=== PATIENT | female | born 1970 | race Caucasian/White ===

== ENCOUNTER 2022-06-15 10:17 | Inpatient (IN) | payer MEDICAID ==
[2022-06-15] VITALS (17 sets, daily range): BP systolic 70–118; BP diastolic 39–76
[~2022-06-15] VITALS: Ht 152.4 cm; Wt 51.3 kg
--- NOTE | 2022-06-15 10:17 | NUR ---
RAFI RA 8 FROM [facility] FOR LOW O2SAT. PT ARRIVED ON NONREBREATHER SATTING AT 100%. PT ATTACHED TO MONITOR, PT HYPOTENSIVE, MD AWARE. PT IS NONVERBAL. G TUBE AND [place]KEON CATHETER IN PLACE UPON ARRIVAL. DR ALEXIS AT BEDSIDE. AWAITING MD ORDERS.
--- NOTE | 2022-06-15 11:15 | NUR ---
IV ESTABLISHED L HAND 22G. UNABLE TO DRAWN LABS.
[2022-06-15] MEDS: IPRATROPIUM NEB FS 0.5 MG/2.5 ML AMPUL.NEB NEB SCH ×4 (11:30→23:39)
[2022-06-15] MEDS ORDERED: MAGN400O6 GT (11:37)
[2022-06-15] MEDS ORDERED: LOPE1LIQ56 GT (11:37)
[2022-06-15] MEDS ORDERED: IBUP-2383 GT (11:37)
[2022-06-15] MEDS ORDERED: ALEN70TA80 GT (11:37)
[2022-06-15] MEDS ORDERED: VALP250S4 GT ×2 (11:37)
[2022-06-15] MEDS ORDERED: EMPA10TA GT (11:37)
[2022-06-15] MEDS ORDERED: MULT-16 GT (11:37)
[2022-06-15] MEDS ORDERED: METF-440 GT (11:37)
[2022-06-15] MEDS ORDERED: CHOL200059 GT (11:37)
[2022-06-15] MEDS ORDERED: CALC500T52 GT (11:37)
[2022-06-15] MEDS ORDERED: ACET160S2 GT (11:37)
[2022-06-15] MEDS ORDERED: BISA10SU11 RC (11:37)
[2022-06-15] MEDS ORDERED: AMIN30LI27 GT (11:37)
[2022-06-15] MEDS ORDERED: CALA177L16 TP (11:37)
[2022-06-15] MEDS ORDERED: ZINC1CAP2 GT (11:37)
[2022-06-15] MEDS ORDERED: INSU100V39 SQ (11:37)
[2022-06-15] MEDS ORDERED: SIME-9 GT (11:37)
[2022-06-15] MEDS ORDERED: CHLO473M5 MM (11:37)
[2022-06-15] MEDS ORDERED: MINE105O TP (11:37)
[2022-06-15] MEDS ORDERED: SENN8.8S19 GT (11:37)
[2022-06-15] MEDS ORDERED: PRAV10TA40 GT (11:37)
[2022-06-15] MEDS ORDERED: NUT.250L18 GT (11:37)
[2022-06-15] MEDS ORDERED: ESOM40CA GT (11:37)
[2022-06-15] MEDS ORDERED: ALLA266C2 TP (11:37)
[2022-06-15] MEDS ORDERED: LISI1SOL GT (11:37)
[2022-06-15] MEDS ORDERED: FENO200C GT (11:37)
[2022-06-15] MEDS ORDERED: ATEN50TA GT (11:37)
[2022-06-15] MEDS ORDERED: ONDA4TAB11 SL (11:37)
[2022-06-15] MEDS ORDERED: LACT1CAP71 GT (11:37)
[2022-06-15] MEDS ORDERED: VITS5OIN2 TP (11:37)
[2022-06-15] MEDS ORDERED: ALBU2.5V38 IH (11:37)
[2022-06-15] MEDS ORDERED: MAGN400T26 GT (11:37)
[2022-06-15] MEDS ORDERED: GUAI118S10 GT (11:37)
[2022-06-15] MEDS ORDERED: NYST15CR TP (11:37)
[2022-06-15] MEDS ORDERED: ENOXAPARIN SODIUM 40 MG/0.4 ML DISP.SYRIN SQ ONE (11:54)
[2022-06-15] MEDS ORDERED: methylPREDNISolone SOD SUCC 40 MG/ML VIAL ONE (11:54)
[2022-06-15] MEDS ORDERED: IV NS 0.9% 1,000 ML BAG IV ONE (12:00)
[2022-06-15 12:07] LABS: BASOPHILS # (AUTO) 0.2 K/uL (0.0-0.2); BASOPHILS % (AUTO) 0.6 % (0.0-2.0); HEMATOCRIT 37 % (33-45); HEMOGLOBIN 11.5 g/dL (11.5-14.8); LYMPHOCYTES # (AUTO) 5.2 K/uL (0.8-4.8); LYMPHOCYTES % (AUTO) 16.3 % (20.0-44.0); MEAN CORPUSCULAR HGB CONC 31 g/dl (31.0-36.0); MEAN CORPUSCULAR VOLUME 97 fL (82-100); MONOCYTES # (AUTO) 2.3 K/uL (0.1-1.30); MONOCYTES % (AUTO) 7.4 % (2.0-12.0); NEUTROPHILS % (AUTO) 75.7 % (43.0-81.0); PLATELET COUNT (AUTO) 451 K/uL (150-450); RED BLOOD CELL COUNT(AUTO) 3.78 MIL/uL (4.0-5.2)
--- NOTE | 2022-06-15 12:10 | NUR ---
ATTEMPTED TO CALL FAMILY TWICE FOR PICC LINE CONSENT, NO RESPONSE. DR ALEXIS SIGNED EMERGENCT CONSENT FORM. PICC LINE NURSE AT BEDSIDE.
[2022-06-15 12:13] LABS: WHITE BLOOD COUNT (AUTO) 31.7 K/uL (4.3-11.0)
--- NOTE | 2022-06-15 12:13 | NUR ---
COVID SWAB COLLECTED
--- NOTE | 2022-06-15 12:23 | NUR ---
PICC LINE NURSE AT BEDSIDE
--- NOTE | 2022-06-15 12:27 | NUR ---
CALLED RADIOLOGY FOR CXR
[2022-06-15 12:30] LABS: ALANINE AMINOTRANSFERASE 8 U/L (12-78); ALBUMIN 2.1 g/dL (3.4-5.0); ALKALINE PHOSPHATASE 125 U/L (46-116); ASPARTATE AMINOTRANSFERASE 12 U/L (15-37); BILIRUBIN,DIRECT 0.1 mg/dL (0.0-0.2); BILIRUBIN,TOTAL 0.3 mg/dL (0.2-1.0); CALCIUM, SERUM 10.7 mg/dL (8.5-10.1); CARBON DIOXIDE 33 mmol/L (21-32); CHLORIDE 108 mmol/L (98-107); SODIUM SERUM 148 mmol/L (136-145); UREA NITROGEN, BLOOD 65 mg/dL (7-18)
[2022-06-15] MEDS: PIPERACILLIN /TAZOBACTAM 3.375 G in IV D5W 50 ML IV SCH ×2 (12:30→20:33)
--- NOTE | 2022-06-15 12:31 | NUR ---
PICC LINE PLACED RUAAND CONFIRMED BY X RAY
[2022-06-15 12:35] LABS: GLUCOSE 364 mg/dL (74-106)
[2022-06-15] MEDS ORDERED: PIPERACILLIN /TAZOBACTAM 3.375 G in IV D5W 50 ML IV ONE (13:00)
[2022-06-15 13:14] LABS: BILIRUBIN,URINE NEGATIVE (NEGATIVE); COLOR,URINE YELLOW (YELLOW); LEUKOCYTE ESTERASE ,URINE 2+ (NEGATIVE); NITRITE, URINE NEGATIVE (NEGATIVE); PH,URINE 5.5 (5.0-8.0); PROTEIN,URINE 2+ mg/dl (NEGATIVE); UGLUCOSE 3+ mg/dL (NEGATIVE); UROBILINOGEN,URINE 0.2 EU/dL (0.2)
[2022-06-15 13:17] LABS: LYMPHOCYTES % (MANUAL) 12 % (16-48); MONOCYTES % (MANUAL) 6 % (0-11.0)
[2022-06-15 13:18] LABS: BLASTS, MANUAL % 20 % (0-0); NEUTROPHILS % (MANUAL) 62 (42-76)
[2022-06-15] MEDS ORDERED: MIDODRINE HCL (5MG) 5 MG TABLET ONE (13:39)
[2022-06-15 13:43] LABS: BACTERIA,URINE 4+ /HPF (None Seen); RBC,URINE NONE SEEN /HPF (0-2); WBC,URINE TOO NUMEROUS TO COUN /HPF (0-3)
[2022-06-15] MEDS: ENOXAPARIN SODIUM 40 MG/0.4 ML DISP.SYRIN SQ SCH (13:50)
[2022-06-15] MEDS: MIDODRINE HCL (5MG) 5 MG TABLET GT SCH ×2 (13:57→17:00)
--- NOTE | 2022-06-15 14:36 | NUR ---
SISTER AT BEDSIDE
[2022-06-15] MEDS ORDERED: IPRATROPIUM NEB FS 0.5 MG/2.5 ML AMPUL.NEB ONE ×2 (14:52→16:26)
--- NOTE | 2022-06-15 14:58 | NUR ---
ROOM [facility]
[2022-06-15] MEDS ORDERED: IBUPROFEN SUSP 100 MG/5 ML UDC GT PRN (15:30)
[2022-06-15] MEDS ORDERED: LOPERAMIDE HCL UDC 2 MG/15 ML LIQUID GT PRN (15:30)
--- NOTE | 2022-06-15 15:52 | NUR ---
ATTEMPTED TO GIVE REPORT, NURSE IS NOT AVAILABLE
--- NOTE | 2022-06-15 15:53 | NUR ---
PER NURSE SUPV GIVE REPORT AND TRANSFER PATIENT AT 1630 BECAUSE NURSE IS AT [facility] ASSISTING FOR LUMBAR PUNCTURE
[2022-06-15] MEDS ORDERED: Z GUARD REMEDY 4 OZ OINT TP PRN (16:00)
[2022-06-15] MEDS ORDERED: ONDANSETRON HCL/PF 4 MG/2 ML VIAL IVP PRN (16:00)
[2022-06-15] MEDS ORDERED: NOREPINEPHRINE 8 MG in IV NS 0.9% 242 ML IV PRN ×2 (16:00→18:30)
[2022-06-15] MEDS ORDERED: ENOXAPARIN SODIUM 40 MG/0.4 ML DISP.SYRIN SQ SCH (16:00)
[2022-06-15] MEDS ORDERED: ZOLPIDEM TARTRATE 5 MG TABLET PO PRN (16:00)
[2022-06-15] MEDS ORDERED: DEXTROSE 50%-WATER 50 ML DISP.SYRIN IV PRN (17:00)
[2022-06-15] MEDS: MAGNESIUM OXIDE 400 MG TABLET GT SCH (17:00)
[2022-06-15] MEDS: CHLORHEXIDINE GLUCONATE 15 ML UDC MM SCH (17:00)
[2022-06-15] MEDS ORDERED: SIMETHICONE SUSP 40 MG/0.6 ML BOTTLE GT SCH (17:00)
--- NOTE | 2022-06-15 17:22 | NUR ---
REPORT GIVEN TO EVELYN BARBOZA FOR JIGNA
[2022-06-15] MEDS ORDERED: Medication Not On Formulary EA (Fenofibrate,Micronized (Fenofibrate) 200 MG) GT SCH (18:00)
--- NOTE | 2022-06-15 18:00 | NUR ---
RN NOTE: MEDS PT WAS NOT ON UNIT AT MED SCHEDULED TIME.
--- NOTE | 2022-06-15 18:05 | NUR ---
PT TRANSFERRED TO [address] [facility]IA [facility] ACLS PROTOCOL. RT AT BEDSIDE W/ PT. WARM HANDOFF GIVEN TO RN ASSIGNED.
[2022-06-15] MEDS: IV D5/ 0.9% NACL 1,000 ML IV PRN (18:41)
--- NOTE | 2022-06-15 18:47 | NUR ---
RN NOTE PT RECEIVED FROM ED. PT IS ON 6L O2 VIA NC SAT 98%. PT IS NONVERBAL A/OX1. PT HAS PEG AND CLAMPED AT THIS TIME. PIC OF LOI TAKEN FOR REDNESS PIC PLACED IN CHART. IV ACCESS R UA PICC LINE INFUSING WITH D5 NS@ 100ML/HR. BED IS LOCKED IN LOWEST POSITION X2 BED RAILS UP AND ALL HOSPITAL SAFETY MEASURES ARE IN PLACE.
[2022-06-15] MEDS: BLOOD SUGAR DIAGNOSTIC 1 EACH STRIP IN SCH (19:03)
[2022-06-15] MEDS: VALPROIC ACID 250 MG/5 ML UDC GT SCH (19:04)
[2022-06-15] MEDS: INSULIN REGULAR, HUMAN 100 UNIT/ML 3 ML VIAL SQ PRN (19:14)
--- NOTE | 2022-06-15 20:00 | NUR ---
ICU/PERMASTONE INSTALLER STARTED LEVO BY ASSISTANT PROPERTY MANAGER NURSE FOR LOW BP, SEE IV SPREAD SHEET FOR TITRATION. WILL MONITOR THIS PT AND HER BLOOD PRESSURE.
[2022-06-15] MEDS: methylPREDNISolone SOD SUCC 40 MG/ML VIAL IV SCH (20:31)
[2022-06-15 22:14] LABS: ABG BASE EXCESS 5.1 mmol/L; ABG PCO2 44.2 mmHg (35.0-45.0); ABG PH 7.446 (7.350-7.450); ABG PO2 335.3 mmHg (75.0-100.0); COHb 0.3 % (0.5-1.5); MetHb 0.5 % (0.0-1.5); O2Hb 98.8 % (94.0-97.0)
[2022-06-16] VITALS (84 sets, daily range): BP systolic 74–236; BP diastolic 22–147
[2022-06-16] MEDS: BLOOD SUGAR DIAGNOSTIC 1 EACH STRIP IN SCH ×4 (00:50→18:07)
[2022-06-16] MEDS: INSULIN REGULAR, HUMAN 100 UNIT/ML 3 ML VIAL SQ PRN ×3 (00:52→12:11)
--- NOTE | 2022-06-16 02:45 | NUR ---
ICU/MARINE STEAM FITTER SENIOR ENVIRONMENTAL TECHNICIAN LINDSAY CALLED FOR LOW HEART RATE 30'S AND LOW BP. SAID TO TMD TEACHER TO DENISE DUE TO LEVO SOMETIMES MAKE HEART RATE LOW. ALSO EKG DONE AND PLACED IN CHART. ORDERS RECIEVED AND CARRIED OUT. WILL MONITOR THIS PT AND HER BP
[2022-06-16] MEDS ORDERED: PHENYLEPHRINE 10 MG/ML VIAL ONE (02:57)
[2022-06-16] MEDS ORDERED: PHENYLEPHRINE 50 MG in IV NS 0.9% 245 ML IV PRN (03:00)
--- NOTE | 2022-06-16 03:48 | NUR ---
ICU/SPRINKLER HELPER DENISE WAS STATED AND TITRATED UP FOR LOW BP, ALSO HEAD OF GEOGRAPHY LINDSAY SAID TO KEEP SBP GREATER THAN 100. SEE IV SPREAD SHEET FOR TITRATION
[2022-06-16] MEDS: IV D5/ 0.9% NACL 1,000 ML IV PRN ×2 (03:51→17:00)
[2022-06-16] MEDS: IPRATROPIUM NEB FS 0.5 MG/2.5 ML AMPUL.NEB NEB SCH ×5 (04:25→20:04)
[2022-06-16] MEDS: methylPREDNISolone SOD SUCC 40 MG/ML VIAL IV SCH ×3 (04:53→21:40)
[2022-06-16] MEDS: PIPERACILLIN /TAZOBACTAM 3.375 G in IV D5W 50 ML IV SCH (04:53)
[2022-06-16 05:11] LABS: BASOPHILS % (AUTO) 0.1 % (0.0-2.0); HEMATOCRIT 32 % (33-45); HEMOGLOBIN 9.8 g/dL (11.5-14.8); LYMPHOCYTES # (AUTO) 2.5 K/uL (0.8-4.8); LYMPHOCYTES % (AUTO) 12.6 % (20.0-44.0); MEAN CORPUSCULAR HGB CONC 31 g/dl (31.0-36.0); MEAN CORPUSCULAR VOLUME 98 fL (82-100); MONOCYTES # (AUTO) 0.3 K/uL (0.1-1.30); MONOCYTES % (AUTO) 1.7 % (2.0-12.0); NEUTROPHILS # (AUTO) 16.9 K/uL (1.8-8.9); NEUTROPHILS % (AUTO) 85.6 % (43.0-81.0); PLATELET COUNT (AUTO) 428 K/uL (150-450); RED BLOOD CELL COUNT(AUTO) 3.24 MIL/uL (4.0-5.2); WHITE BLOOD COUNT (AUTO) 19.7 K/uL (4.3-11.0)
--- NOTE | 2022-06-16 05:20 | NUR ---
ICU/SOFTWARE DEVELOPMENT ENGINEER CALLED CINDER DUMP CRANE OPERATOR LINDSAY ABOUT LOW HEART RATE, SAID TO KEEP DENISE FOR NOW AND NO CHANGE
[2022-06-16 05:26] LABS: CALCIUM, SERUM 9.4 mg/dL (8.5-10.1); CREATININE 0.8 mg/dL (0.6-1.3); MAGNESIUM 2.6 mg/dL (1.8-2.4); PHOSPHORUS 1.4 mg/dL (2.5-4.9); POTASSIUM 3.2 mmol/L (3.5-5.1)
--- NOTE | 2022-06-16 06:57 | NUR ---
ICU/INSPECTOR ADVANCED COMPOSITE LA IS 2.4 IS TRENDING DOWN, WILL MONITOR
--- NOTE | 2022-06-16 08:00 | NUR ---
RN NOTES RECEIVED PATIENT ON O2-2LNC GETTING BREATHING TREATMENT AT THIS TIME VIA RT, BEDSIDE MONITOR SHOWS 97%. NO ACUTE RESPIRATORY DISTRESS, PATIENT HR 39 TO 40. INFUSING NEOSYNEPHRINE 0.7MCG/KG/MIN TITRATED PER PROTOCOL BP- 125/39 . PATIENT HAS NEPHROSTOMY TUBE, AND DRAINING LIGHT YELLOW OUTPUT, GT INTACT. SKIN INTACT, PRIVET COMPLIANCE ENGINEER PRODUCTS NEXT TO THE BED. PATIENT TOTAL CARE. DUE MEDICATION ADMINISTERED VIA GT. ASSIST TURN AND REPOSTION Q 2 HR.
--- NOTE | 2022-06-16 08:30 | NUR ---
rn notes patient room air after breathing treatment. o2-96% on bedside monitor. will follow up
--- NOTE | 2022-06-16 08:45 | NUR ---
RN NOTES GET ORDER VIA Dr MARISCAL TO ADMINISTER NS-500 ML BOLUSIV FLUIDS, AND TITRATED NEOSYNEPHRINE. ALSO PRODUCTION TECHNICIAN CONSULTATION Dr FOSTER. ORDER TAKEN AND CARRIED OUT.
[2022-06-16] MEDS: CHLORHEXIDINE GLUCONATE 15 ML UDC MM SCH ×3 (08:59→18:07)
[2022-06-16] MEDS: VALPROIC ACID 250 MG/5 ML UDC GT SCH ×2 (08:59→17:51)
[2022-06-16] MEDS: MAGNESIUM OXIDE 400 MG TABLET GT SCH ×2 (09:00→17:51)
[2022-06-16] MEDS: MULTIVITAMINS,THERAGRAN 1 UDTAB TABLET GT SCH (09:00)
[2022-06-16] MEDS ORDERED: PANTOPRAZOLE 40 MG VIAL IV SCH (09:00)
[2022-06-16] MEDS: CALCIUM CARBONATE (1250) 500 MG TABLET GT SCH (09:00)
[2022-06-16] MEDS ORDERED: IV NS 0.9% 500 ML IV ONE (09:00)
[2022-06-16] MEDS: MIDODRINE HCL (5MG) 5 MG TABLET GT SCH ×3 (09:02→18:07)
[2022-06-16] MEDS: ENOXAPARIN SODIUM 40 MG/0.4 ML DISP.SYRIN SQ SCH (09:04)
[2022-06-16 09:05] LABS: ABG BASE EXCESS 2.7 mmol/L; ABG OXYGEN SATURATION 92.2 % (92.0-98.5); ABG PCO2 49.8 mmHg (35.0-45.0); ABG PH 7.376 (7.350-7.450); ABG PO2 68.9 mmHg (75.0-100.0); AaDO2 21.2 mmHg; COHb 0.3 % (0.5-1.5); MetHb 0.5 % (0.0-1.5); O2Hb 91.5 % (94.0-97.0); SITE, ABG Right Brachial; VENT MODE, BG ROOM AIR
--- NOTE | 2022-06-16 09:49 | NUR ---
RN NOTES HOSPITALIST YING HEADER OPERATOR NEXT TO THE BED WITH PATIENT.
[2022-06-16] MEDS ORDERED: Magnesium 1GM/D5W 100ML PREMIX 100 ML IV SCH (11:00)
[2022-06-16] MEDS ORDERED: POTASSIUM CHLORIDE 20 MEQ POWDER PACKET GT SCH (11:00)
[2022-06-16] MEDS: FLUDROCORTISONE 0.1 MG TABLET GT SCH ×2 (11:05→18:07)
[2022-06-16] MEDS: HYDROCORTISONE SOD SUCCINATE 100 MG/2 ML VIAL IV SCH ×3 (11:07→21:40)
[2022-06-16] MEDS ORDERED: DOPamine 400 MG in IV D5W 250 ML IV PRN (11:30)
[2022-06-16] MEDS: ALBUTEROL FS 2.5 MG/3 ML VIAL.NEB IH PRN ×2 (12:04→14:28)
[2022-06-16] MEDS: PIPERACILLIN /TAZOBACTAM 3.375 G in IV D5W 100 ML IV SCH ×2 (12:17→21:42)
[2022-06-16] MEDS: SIMETHICONE 80 MG TAB.CHEW GT SCH ×3 (12:17→17:51)
[2022-06-16] MEDS: POTASSIUM PHOSPHATE MM 7.5 MMOL in IV NS 0.9% 100 ML IV SCH ×2 (15:26→17:07)
--- NOTE | 2022-06-16 16:00 | NUR ---
rn notes administered Motrin 400 mg via gt for pain , bp 139/54, p-60.
[2022-06-16] MEDS ORDERED: IV NS 0.9% 250 ML IV PRN (18:00)
[2022-06-16] MEDS: HYDROCODONE/APAP 5/325MG TABLET PO PRN (18:35)
--- NOTE | 2022-06-16 18:36 | NUR ---
RN NOTES ADMINISTERED NARCO 5/ 325 MG VIA GT FOR GENERALIZED PAIN. BP 128/40, P-45, R-40, PM CARE DONE, ASSIST TURN AND REPOSTION Q 2 HR, DUE MEDICATION ADMINISTERED. PRIVET RISK DEVELOPER NEXT TO THE BED, INFUSING D5NS@100ML/HR, AND POTASSIUM PHOSPHATE @34.16 MG/HR ON SHABNAM PICC LINE INTACT. NEPHROSTOMY DRAINING 225 ML/HR. PATIENT ROOM AIR, NO ACUTE RESPIRATORY DISTRESS. ENDORSED ONCOMING NURSE FOLLOW PLAN OF CARE.
[2022-06-17] VITALS (73 sets, daily range): BP systolic 49–172; BP diastolic 21–141
[2022-06-17] MEDS: IPRATROPIUM NEB FS 0.5 MG/2.5 ML AMPUL.NEB NEB SCH ×7 (00:07→23:26)
--- NOTE | 2022-06-17 00:10 | NUR ---
ICU/SUBCONTRACT MANAGER SATURATION ON ROOM AIR IS LOW 90'S TO HIGH 80'S, PT PLACED ON 2 LITERS N/C WILL MONITOR.
[2022-06-17] MEDS: BLOOD SUGAR DIAGNOSTIC 1 EACH STRIP IN SCH ×4 (00:51→17:18)
[2022-06-17] MEDS: FLUDROCORTISONE 0.1 MG TABLET GT SCH ×4 (00:53→17:29)
[2022-06-17] MEDS ORDERED: DOPamine 400MG/D5W 250ML RTU 250 ML ONE (01:43)
[2022-06-17] MEDS: INSULIN REGULAR, HUMAN 100 UNIT/ML 3 ML VIAL SQ PRN ×4 (03:07→17:39)
--- NOTE | 2022-06-17 03:09 | NUR ---
ICU/GREEN BUILDING MATERIALS DISTRIBUTOR PT WAS STARTED ON DOPA BY SUPERVISOR FIREWORKS ASSEMBLY NURSE FOR LOW BP 70'S FOR A FEW CYCLES. WILL MONITOR THIS PT AND HER BP. SEE IV SPREAD SHEET FOR TITRATION
[2022-06-17] MEDS: IV D5/ 0.9% NACL 1,000 ML IV PRN ×2 (03:47→14:10)
--- NOTE | 2022-06-17 04:42 | NUR ---
ICU/IRONMOLDER DOPA WAS TITRATED BY PRESSURE TESTER OPERATOR NURSE FOR STABLE BP, WILL MONITOR THIS PT.
[2022-06-17] MEDS: methylPREDNISolone SOD SUCC 40 MG/ML VIAL IV SCH ×3 (04:51→20:39)
[2022-06-17] MEDS: PIPERACILLIN /TAZOBACTAM 3.375 G in IV D5W 100 ML IV SCH ×2 (04:51→12:17)
[2022-06-17] MEDS: HYDROCORTISONE SOD SUCCINATE 100 MG/2 ML VIAL IV SCH ×3 (04:51→20:38)
[2022-06-17 04:53] LABS: HEMATOCRIT 32 % (33-45); HEMOGLOBIN 9.8 g/dL (11.5-14.8); LYMPHOCYTES # (AUTO) 1.4 K/uL (0.8-4.8); LYMPHOCYTES % (AUTO) 11.6 % (20.0-44.0); MEAN CORPUSCULAR HGB CONC 30 g/dl (31.0-36.0); MEAN CORPUSCULAR VOLUME 101 fL (82-100); MONOCYTES # (AUTO) 0.2 K/uL (0.1-1.30); MONOCYTES % (AUTO) 1.5 % (2.0-12.0); NEUTROPHILS # (AUTO) 10.6 K/uL (1.8-8.9); NEUTROPHILS % (AUTO) 86.9 % (43.0-81.0); PLATELET COUNT (AUTO) 320 K/uL (150-450); WHITE BLOOD COUNT (AUTO) 12.2 K/uL (4.3-11.0)
--- NOTE | 2022-06-17 05:15 | NUR ---
ICU/PRINT COLOR OPERATOR NORCO 1 TABLE GIVEN FOR PAIN FLACC LEVEL 7/10 VIA G/TUBE. WILL MONITORT HIS PT PAIN
[2022-06-17] MEDS: HYDROCODONE/APAP 5/325MG TABLET PO PRN ×2 (05:19→12:44)
--- NOTE | 2022-06-17 06:25 | NUR ---
ICU/MACHINE TANK OPERATOR DOPA IS OFF AT THIS TIME FOR STABLE BP, WILL MONITOR.
[2022-06-17 06:26] LABS: CALCIUM, SERUM 8.4 mg/dL (8.5-10.1); CREATININE 0.6 mg/dL (0.6-1.3); MAGNESIUM 2.6 mg/dL (1.8-2.4)
--- NOTE | 2022-06-17 08:00 | NUR ---
RN NOTES RECEIVED PATIENT ROOM AIR, NO ACUTE RESPIRATORY DISTRESS, NO HR-48 ON BEDSIDE MONITOR. DUE MEDICATION ADMINISTERED VIA GT. RECHECKED PLACEMENT. NO RESIDUAL. V/S STABLE,PATIENT OFF ON DOPAMINE, INFUSING D5NS@100ML/HR, AND ZOSYN 25ML/HR ON SHABNAM PICC LINE INTACT. ASSIST TURN AND REPOSTION Q 2 HR. NEPHROSTOMY TUBE DRAINING WELL, PRIVET CABLE TOOL OPERATOR NEXT TO THE BED. WILL FOLLOW UP.
[2022-06-17] MEDS: VALPROIC ACID 250 MG/5 ML UDC GT SCH ×2 (09:23→17:27)
[2022-06-17] MEDS: MAGNESIUM OXIDE 400 MG TABLET GT SCH ×2 (09:23→17:41)
[2022-06-17] MEDS: CHLORHEXIDINE GLUCONATE 15 ML UDC MM SCH ×3 (09:23→17:40)
[2022-06-17] MEDS: MULTIVITAMINS,THERAGRAN 1 UDTAB TABLET GT SCH (09:23)
[2022-06-17] MEDS: SIMETHICONE 80 MG TAB.CHEW GT SCH ×3 (09:23→17:27)
[2022-06-17] MEDS: PANTOPRAZOLE 40 MG/PACK PACK GT SCH (09:23)
[2022-06-17] MEDS: CALCIUM CARBONATE (1250) 500 MG TABLET GT SCH (09:24)
[2022-06-17] MEDS: MIDODRINE HCL (5MG) 5 MG TABLET GT SCH ×3 (09:24→17:28)
[2022-06-17] MEDS: ENOXAPARIN SODIUM 40 MG/0.4 ML DISP.SYRIN SQ SCH (09:27)
--- NOTE | 2022-06-17 11:27 | NUR ---
RN NOTES PATIENT GOING TO DOWNGRADE TO THE TELE UNIT WAITING FOR AVAILABLE BED.
--- NOTE | 2022-06-17 12:44 | NUR ---
rn notes BS-190 MG/DL COVERAGE GIVEN, ALSO ADMINISTERED PAIN MEDICATION NARCO 5/325 MG VIA GT, DUE MEDICATION ADMINISTERED, INFUSING ZOSYN 25ML EXTENDED DOSE ON SHABNAM PICC LINE INTACT, ASSIST TURN AND REPOSTION Q 2 HR. WILL FOLLOW UP.
[2022-06-17] MEDS ORDERED: IV D5W 1,000 ML IV PRN (15:00)
[2022-06-17] MEDS: MAGNESIUM HYDROXIDE 30 ML UDC GT SCH (17:27)
--- NOTE | 2022-06-17 18:45 | NUR ---
RN NOTES BS-133 MG/DL COVERAGE GIVEN ,DUE MEDICATION ADMINISTERED VIA GT, INFUSING D5W@80ML/HR ON SHABNAM PICC LINE INTACT, ASSIST TURN AND REPOSTION Q 2 HR. PM ACRE GIVEN SUCTION, MOUTH CARE DONE. PRIVET SPORTS BROADCASTER NEXT TO THE BED. TRANSFERRED PATIENT TO THE TELE UNIT STABLE CONDITION BEDSIDE REPORT GIVEN ONCOMING RN FOLLOW PLAN OF CARE.
[2022-06-17] MEDS: MEROPENEM 500 MG in IV NS 0.9% 50 ML IV SCH (21:28)
--- NOTE | 2022-06-17 22:58 | NUR ---
[facility] RN OPENING NOTE PT RECEIVED IN BED WITH CAREGIVER AT BEDSIDE, AWAKE, NON-VERBAL, OPENS EYES. PT ON RA WITH CURRENT O2SAT OF 96%; NO S/S OF RESP DISTRESS, NO SOB OR COUGH, NON-LABORED AND EQUAL BREATHING; APPEARS COMFORTABLE OVERALL. PT ATTACHED TO EXTERNAL MONITOR SB WITH HR OF 44. PT NOTED TO HAVE RIGHT SIDE NEPHROSTOMY THAT'S DRAINING CLEAR AND YELLOW URINE. SHABNAM PICC INTACT AND PATENT, FLUSHES EASILY WITH NO RESISTANCE; D5W AT 80 ML/HR. BED IN LOWEST POSITION, CALL LIGHT WITHIN REACH, SIDE RAILS UP X3. WILL CONTINUE TO MONITOR THROUGHOUT THE NIGHT.
[2022-06-18] VITALS: BP 147/83
[2022-06-18] MEDS: BLOOD SUGAR DIAGNOSTIC 1 EACH STRIP IN SCH ×4 (00:06→17:16)
[2022-06-18] MEDS: FLUDROCORTISONE 0.1 MG TABLET GT SCH ×3 (00:13→12:01)
[2022-06-18] MEDS: INSULIN REGULAR, HUMAN 100 UNIT/ML 3 ML VIAL SQ PRN ×3 (00:16→17:20)
[2022-06-18] MEDS: ACETAMINOPHEN 650 MG/20.3 ML UDC GT PRN ×2 (03:45→15:10)
--- NOTE | 2022-06-18 03:45 | NUR ---
RN NOTE AFTER CLEANING PT, PT NOTED TO HAVE FACIAL GRIMACING AND MAKING CRYING NOISES. PT ADMINISTERED TYLENOL 650 MG FOR COMFORT.
[2022-06-18 04:00] VITALS: BP 136/66
[2022-06-18] MEDS: IPRATROPIUM NEB FS 0.5 MG/2.5 ML AMPUL.NEB NEB SCH ×6 (04:27→23:46)
[2022-06-18] MEDS: MEROPENEM 500 MG in IV NS 0.9% 50 ML IV SCH ×3 (05:06→21:15)
[2022-06-18] MEDS: methylPREDNISolone SOD SUCC 40 MG/ML VIAL IV SCH ×3 (05:07→21:16)
[2022-06-18] MEDS: HYDROCORTISONE SOD SUCCINATE 100 MG/2 ML VIAL IV SCH ×2 (05:07→12:01)
--- NOTE | 2022-06-18 06:14 | NUR ---
[facility] RN CLOSING NOTE PT REMAINS IN BED, AWAKE, NON-VERBAL, OPENS EYES; MAKES CRYING NOISES AND FACIAL GRIMACES AT TIMES. CONTINUES TO BE ON RA WITH O2SAT RANGING FROM 94%- 96%; HAS OCCASIONAL NON-PRODUCTIVE COUGH; NO OTHER S/S OF RESP DISTRESS, NO SOB, NON-LABORED AND EQUAL BREATHING. ATTACHED TO EXTERNAL MONITOR SB-SR WITH HR OF 44 LOWEST AND 96 HIGHEST. RIGHT SIDE NEPHROSTOMY INTACT AND PATENT, DRAINING CLEAR AND YELLOW URINE. SHABNAM PICC INTACT AND PATENT, FLUSHES EASILY WITH NO RESISTANCE; D5W AT 80 ML/HR. ALL DUE MEDS ADMINISTERED DURING THE NIGHT. BED IN LOWEST POSITION, CALL LIGHT WITHIN REACH, SIDE RAILS UP X3. WILL ENDORSE TO DAYSHIFT NURSE TO CONTINUE CARE.
[2022-06-18 06:25] LABS: BASOPHILS % (AUTO) 0.2 % (0.0-2.0); HEMATOCRIT 28 % (33-45); HEMOGLOBIN 8.7 g/dL (11.5-14.8); LYMPHOCYTES # (AUTO) 1.4 K/uL (0.8-4.8); LYMPHOCYTES % (AUTO) 20.3 % (20.0-44.0); MEAN CORPUSCULAR HGB CONC 31 g/dl (31.0-36.0); MEAN CORPUSCULAR VOLUME 99 fL (82-100); MONOCYTES # (AUTO) 0.3 K/uL (0.1-1.30); MONOCYTES % (AUTO) 4.2 % (2.0-12.0); NEUTROPHILS # (AUTO) 5.2 K/uL (1.8-8.9); NEUTROPHILS % (AUTO) 75.3 % (43.0-81.0); PLATELET COUNT (AUTO) 235 K/uL (150-450); RED BLOOD CELL COUNT(AUTO) 2.81 MIL/uL (4.0-5.2); WHITE BLOOD COUNT (AUTO) 6.9 K/uL (4.3-11.0)
[2022-06-18 07:08] LABS: CALCIUM, SERUM 7.5 mg/dL (8.5-10.1); CREATININE 0.7 mg/dL (0.6-1.3); MAGNESIUM 2.3 mg/dL (1.8-2.4); PHOSPHORUS 4.4 mg/dL (2.5-4.9); POTASSIUM 3.7 mmol/L (3.5-5.1)
--- NOTE | 2022-06-18 07:37 | NUR ---
RN NOTE RECEIVED PT LYING IN BED, IN ROOM AIR. NOT IN RESPIRATORY DISTRESS. PT NOTED SB @49 ON TELE MONITOR. PT IS RESPONSIVE TO STIMULI. R SIDE NEPHROSTOMY IN PLACE DRAINING WELL. SHABNAM PICC WITH D5W RUNNING @80/HR. SAFETY MEASURES FOLLOWED. WILL CONTINUE TO MONITOR.
[2022-06-18 08:00] VITALS: BP 153/77
[2022-06-18] MEDS: CHLORHEXIDINE GLUCONATE 15 ML UDC MM SCH ×3 (08:40→17:16)
[2022-06-18] MEDS: VALPROIC ACID 250 MG/5 ML UDC GT SCH ×2 (08:40→17:16)
[2022-06-18] MEDS: PANTOPRAZOLE 40 MG/PACK PACK GT SCH (08:40)
[2022-06-18] MEDS: SIMETHICONE 80 MG TAB.CHEW GT SCH ×3 (08:40→17:16)
[2022-06-18] MEDS: CALCIUM CARBONATE (1250) 500 MG TABLET GT SCH (08:40)
[2022-06-18] MEDS: MAGNESIUM OXIDE 400 MG TABLET GT SCH ×2 (08:40→17:16)
[2022-06-18] MEDS: MULTIVITAMINS,THERAGRAN 1 UDTAB TABLET GT SCH (08:40)
[2022-06-18] MEDS: ENOXAPARIN SODIUM 40 MG/0.4 ML DISP.SYRIN SQ SCH (08:41)
[2022-06-18] MEDS: MIDODRINE HCL (5MG) 5 MG TABLET GT SCH ×3 (09:00→17:16)
[2022-06-18 12:00] VITALS: BP 176/83
[2022-06-18] MEDS ORDERED: GLUCERNA 1.2 1,000 ML BOTTLE GT SCH (12:00)
[2022-06-18 13:27] LABS: BAND % (MANUAL) 9 % (0.0-5.0); LYMPHOCYTES % (MANUAL) 25 % (16-48); MONOCYTES % (MANUAL) 5 % (0-11.0); NEUTROPHILS % (MANUAL) 61 (42-76)
[2022-06-18 16:00] VITALS: BP 118/67
[2022-06-18] MEDS: GLUCERNA 1.2 1,000 ML BOTTLE GT SCH (16:45)
--- NOTE | 2022-06-18 17:52 | NUR ---
RN NOTE PT LYING IN BED, IN ROOM AIR. NOT IN RESPIRATORY DISTRESS. PT NOTED SB @46 ON TELE MONITOR. PT IS RESPONSIVE TO STIMULI. R SIDE NEPHROSTOMY IN PLACE DRAINING WELL. SHABNAM PICC WITH NO IVF RUNNING.STARTED ON GT FEEDING GLUCERNA 1.2 @40 CC/HR. TOLERATING WELL. ASPIRATION PREC MAINTAINED. DUE MEDICATIONS GIVEN, AM/PM CARE DONE. TURNED AND REPOSITION Q2H. SAFETY MEASURES FOLLOWED. WILL CONTINUE TO MONITOR.
--- NOTE | 2022-06-18 19:48 | NUR ---
RN OPENING NOTES: RECEIVED PT IN BED, AWAKE, NON-VERBAL, OPENS BOTH EYES. ON AND OFF NOTED WITH FACIAL GRIMACING. ON ROOM AIR AND PT TOLERATED WELL. NO SOB, BREATHING EVEN AND UNLABORED. SHABNAM PICC INTACT AND PATENT,NO ACTIVE BLEEDING NOTED. GTUBE FEEDING WELL TOLERATED. RIGHT SIDE NEPHROSTOMY INTACT AND PATENT. PUREWICK IN PLACE. DRAINING CLEAR AND YELLOW URINE. ALL SAFETY MEASURES IN PLACE. BED IN LOWEST POSITION AND LOCKED. PLACE CALL LIGHT WITHIN REACH, SIDE RAILS UP X3. WILL CONTINUE TO MONITOR
[2022-06-18 20:00] VITALS: BP 100/63
[2022-06-19] VITALS: BP 121/92
[2022-06-19] MEDS: BLOOD SUGAR DIAGNOSTIC 1 EACH STRIP IN SCH ×4 (00:48→17:32)
[2022-06-19] MEDS: INSULIN REGULAR, HUMAN 100 UNIT/ML 3 ML VIAL SQ PRN ×4 (00:50→17:59)
--- NOTE | 2022-06-19 01:00 | NUR ---
RN NOTES: PT'S BLOOD SUGAR 227. 4 UNITS OF REGULAR INSULIN GIVEN. NO S/S OF HYPER/HYPOGLYCEMIA. WILL CONTINUE TO MONITOR
[2022-06-19] MEDS: IPRATROPIUM NEB FS 0.5 MG/2.5 ML AMPUL.NEB NEB SCH ×6 (03:51→23:26)
[2022-06-19 04:00] VITALS: BP 146/87
[2022-06-19] MEDS: methylPREDNISolone SOD SUCC 40 MG/ML VIAL IV SCH ×3 (05:35→21:30)
[2022-06-19] MEDS: MEROPENEM 500 MG in IV NS 0.9% 50 ML IV SCH ×3 (05:35→21:30)
[2022-06-19] MEDS: ACETAMINOPHEN 650 MG/20.3 ML UDC GT PRN (05:50)
[2022-06-19 06:09] LABS: BASOPHILS % (AUTO) 0.4 % (0.0-2.0); HEMATOCRIT 32 % (33-45); HEMOGLOBIN 10.3 g/dL (11.5-14.8); LYMPHOCYTES # (AUTO) 1.5 K/uL (0.8-4.8); LYMPHOCYTES % (AUTO) 25.4 % (20.0-44.0); MEAN CORPUSCULAR HGB CONC 33 g/dl (31.0-36.0); MEAN CORPUSCULAR VOLUME 96 fL (82-100); MONOCYTES # (AUTO) 0.5 K/uL (0.1-1.30); MONOCYTES % (AUTO) 9.3 % (2.0-12.0); NEUTROPHILS # (AUTO) 3.7 K/uL (1.8-8.9); NEUTROPHILS % (AUTO) 64.9 % (43.0-81.0); PLATELET COUNT (AUTO) 281 K/uL (150-450); WHITE BLOOD COUNT (AUTO) 5.7 K/uL (4.3-11.0)
[2022-06-19 06:15] LABS: CALCIUM, SERUM 8.5 mg/dL (8.5-10.1); CREATININE 0.6 mg/dL (0.6-1.3); MAGNESIUM 2.5 mg/dL (1.8-2.4); PHOSPHORUS 4.4 mg/dL (2.5-4.9); POTASSIUM 3.7 mmol/L (3.5-5.1)
--- NOTE | 2022-06-19 06:34 | NUR ---
RN CLOSING NOTES: PT IN BED, AWAKE, NON-VERBAL, OPENS BOTH EYES. ON AND OFF NOTED WITH FACIAL GRIMACING. ON ROOM AIR AND PT TOLERATED WELL. NO SOB, BREATHING EVEN AND UNLABORED. SHABNAM PICC INTACT AND PATENT,NO ACTIVE BLEEDING NOTED. GTUBE FEEDING WELL TOLERATED. RIGHT SIDE NEPHROSTOMY INTACT AND PATENT. PUREWICK IN PLACE. DRAINING CLEAR AND YELLOW URINE. ALL DUE MEDS GIVEN ORDERED. CAREGIVER AT BEDSIDE. ALL SAFETY MEASURES IN PLACE. BED IN LOWEST POSITION AND LOCKED. PLACE CALL LIGHT WITHIN REACH, SIDE RAILS UP X3. WILL ENDORSE TO MORNING SHIFT NURSE.
--- NOTE | 2022-06-19 07:20 | NUR ---
[facility] RN OPENING NOTE PT RECEIVED IN BED WITH CAREGIVER AT BEDSIDE, AWAKE, NON-VERBAL, OPENS EYES. PT ON NASAL CANNULA 3 L/MIN WITH CURRENT O2SAT OF 99%; NO S/S OF RESP DISTRESS, NO SOB OR COUGH, NON-LABORED AND EQUAL BREATHING; APPEARS COMFORTABLE OVERALL. PT ATTACHED TO EXTERNAL MONITOR SB WITH HR OF 74. PT NOTED TO HAVE RIGHT SIDE NEPHROSTOMY THAT'S DRAINING CLEAR AND YELLOW URINE. SHABNAM PICC INTACT AND PATENT, FLUSHES EASILY WITH NO RESISTANCE. CALL LIGHT WITHIN REACH, SIDE RAILS UP X3. WILL MONITOR
[2022-06-19 09:00] VITALS: BP 135/81
[2022-06-19] MEDS: SIMETHICONE 80 MG TAB.CHEW GT SCH ×3 (09:15→17:01)
[2022-06-19] MEDS: ENOXAPARIN SODIUM 40 MG/0.4 ML DISP.SYRIN SQ SCH (09:15)
[2022-06-19] MEDS: MAGNESIUM OXIDE 400 MG TABLET GT SCH ×2 (09:16→17:01)
[2022-06-19] MEDS: CHLORHEXIDINE GLUCONATE 15 ML UDC MM SCH ×3 (09:16→17:01)
[2022-06-19] MEDS: PANTOPRAZOLE 40 MG/PACK PACK GT SCH (09:16)
[2022-06-19] MEDS: VALPROIC ACID 250 MG/5 ML UDC GT SCH ×2 (09:16→17:05)
[2022-06-19] MEDS: CALCIUM CARBONATE (1250) 500 MG TABLET GT SCH (09:17)
[2022-06-19] MEDS: MIDODRINE HCL (5MG) 5 MG TABLET GT SCH ×3 (09:20→17:00)
[2022-06-19] MEDS: MULTIVITAMINS,THERAGRAN 1 UDTAB TABLET GT SCH (09:22)
--- NOTE | 2022-06-19 10:52 | NUR ---
PT. IS AWAKE BUT UNABLE TO FOLLOW COMMANDS PLACED INTO ROOM AIR FOR O2 TIRATION. SPO2 30 MINUTES IN ROOM AIR IS 96% Addendum: 06/19/22 at 1053 by EDMOND WHITFIELD RT Amended: Links added.
[2022-06-19 12:00] VITALS: BP 155/90
[2022-06-19] MEDS: MAGNESIUM HYDROXIDE 30 ML UDC GT SCH (15:30)
[2022-06-19 16:00] VITALS: BP 163/90
--- NOTE | 2022-06-19 17:06 | NUR ---
RN NOTES'; bp 134/79 held midodrine
[2022-06-19 17:11] LABS: BAND % (MANUAL) 11 % (0.0-5.0); NEUTROPHILS % (MANUAL) 61 (42-76)
[2022-06-19 17:12] LABS: BASOPHILS % (MANUAL) 0 % (0.0-2.0); EOSINOPHILS % (MANUAL) 0 % (0-4); LYMPHOCYTES % (MANUAL) 21 % (16-48); MONOCYTES % (MANUAL) 7 % (0-11.0)
--- NOTE | 2022-06-19 18:53 | NUR ---
[facility] RN CLOSING NOTE PT REMAINS IN BED, AWAKE, NON-VERBAL, OPENS EYES. CONTINUES TO BE ON RA WITH O2SAT RANGING FROM 97%. NO OTHER S/S OF RESP DISTRESS, NO SOB, NON-LABORED AND EQUAL BREATHING. ATTACHED TO EXTERNAL MONITOR SR WITH HR OF 89-74 . RIGHT SIDE NEPHROSTOMY INTACT AND PATENT, DRAINING CLEAR AND YELLOW URINE. SHABNAM PICC INTACT AND PATENT, FLUSHES EASILY WITH NO RESISTANCE. ALL DUE MEDS ADMINISTERED DURING THE NIGHT. BED IN LOWEST POSITION, CALL LIGHT WITHIN REACH, SIDE RAILS UP X3. WILL ENDORSE TO NIGHTSHIFT NURSE TO CONTINUE CARE.
--- NOTE | 2022-06-19 19:30 | NUR ---
PT RECEIVED IN BED WITH CAREGIVER AT BEDSIDE, AWAKE, NON-VERBAL, OPENS EYES. PT ON NASAL CANNULA 3 L/MIN WITH CURRENT O2SAT OF 99%; NO S/S OF RESP DISTRESS, NO SOB OR COUGH, NON-LABORED AND EQUAL BREATHING; APPEARS COMFORTABLE OVERALL. PT ATTACHED TO EXTERNAL MONITOR SB WITH HR OF 74. GT GLUCERNA INFUSING AT 35ML/HR WITH A GOAL OF 40ML/HR. PT NOTED TO HAVE RIGHT SIDE NEPHROSTOMY THAT'S DRAINING CLEAR AND YELLOW URINE. SHABNAM PICC NOTED. CALL LIGHT WITHIN REACH, SIDE RAILS UP X3. WILL CONTINUE PLAN OF CARE.
[2022-06-19 20:00] VITALS: BP 127/56
[2022-06-20] VITALS: BP 138/81
[2022-06-20] MEDS: BLOOD SUGAR DIAGNOSTIC 1 EACH STRIP IN SCH ×3 (00:10→11:32)
[2022-06-20] MEDS: INSULIN REGULAR, HUMAN 100 UNIT/ML 3 ML VIAL SQ PRN ×2 (00:32→11:51)
[2022-06-20] MEDS: GLUCERNA 1.2 1,000 ML BOTTLE GT SCH (02:37)
[2022-06-20] MEDS: IPRATROPIUM NEB FS 0.5 MG/2.5 ML AMPUL.NEB NEB SCH ×2 (02:54→07:43)
[2022-06-20 04:00] VITALS: BP 114/85
[2022-06-20] MEDS: methylPREDNISolone SOD SUCC 40 MG/ML VIAL IV SCH (04:56)
[2022-06-20] MEDS: MEROPENEM 500 MG in IV NS 0.9% 50 ML IV SCH (04:56)
[2022-06-20 06:46] LABS: BASOPHILS % (AUTO) 0.3 % (0.0-2.0); HEMATOCRIT 29 % (33-45); HEMOGLOBIN 9.6 g/dL (11.5-14.8); LYMPHOCYTES # (AUTO) 1.4 K/uL (0.8-4.8); LYMPHOCYTES % (AUTO) 30.6 % (20.0-44.0); MEAN CORPUSCULAR HGB CONC 33 g/dl (31.0-36.0); MEAN CORPUSCULAR VOLUME 95 fL (82-100); MONOCYTES # (AUTO) 0.6 K/uL (0.1-1.30); MONOCYTES % (AUTO) 12.8 % (2.0-12.0); NEUTROPHILS # (AUTO) 2.7 K/uL (1.8-8.9); NEUTROPHILS % (AUTO) 56.3 % (43.0-81.0); PLATELET COUNT (AUTO) 272 K/uL (150-450); RED BLOOD CELL COUNT(AUTO) 3.11 MIL/uL (4.0-5.2); WHITE BLOOD COUNT (AUTO) 4.7 K/uL (4.3-11.0)
--- NOTE | 2022-06-20 06:57 | NUR ---
PT REMAINS IN BED, AWAKE, NON-VERBAL, OPENS EYES. CONTINUES TO BE ON RA WITH O2SAT RANGING FROM 95-100%. NO OTHER S/S OF RESP DISTRESS, NO SOB, NON-LABORED AND EQUAL BREATHING. ATTACHED TO EXTERNAL MONITOR SR WITH HR OF AT 80's . RIGHT SIDE NEPHROSTOMY INTACT AND PATENT, DRAINING CLEAR AND YELLOW URINE. SHABNAM PICC INTACT AND PATENT, FLUSHES EASILY WITH NO RESISTANCE. ALL DUE MEDS ADMINISTERED DURING THE NIGHT. BED IN LOWEST POSITION, CALL LIGHT WITHIN REACH, SIDE RAILS UP X3. WILL ENDORSE TO NEXT SHIFT NURSE FOR CONTINUITY CARE.
[2022-06-20 07:00] LABS: CALCIUM, SERUM 8.2 mg/dL (8.5-10.1); CREATININE 0.6 mg/dL (0.6-1.3); MAGNESIUM 2.2 mg/dL (1.8-2.4); PHOSPHORUS 3.5 mg/dL (2.5-4.9); POTASSIUM 3.6 mmol/L (3.5-5.1)
--- NOTE | 2022-06-20 07:30 | NUR ---
TD RN AM NOTES PT RECEIVED IN BED WITH CAREGIVER AT BEDSIDE, AWAKE, NON-VERBAL, OPENS EYES. PT ON ROOM AIR O2 SAT 99%. NO DISTRESS RESPIRATION UNLABORED. APPEARS COMFORTABLE OVERALL. NSR ON MONITOR. NO SIGNS OF PAIN/GRIMACING. SHABNAM PICC LINE FLUSHES WELL, SITE CLEAR, CDI DRESSINGS. GT GLUCERNA INFUSING AT 40ML/HR. CHECKED FOR PLACEMENT. 5 ML RESIDUAL. PT NOTED TO HAVE RIGHT SIDE NEPHROSTOMY THAT'S DRAINING CLEAR AND YELLOW URINE. PERINEAL REDNESS NOTED. ON PUREWICK. CALL LIGHT WITHIN REACH, SIDE RAILS UP X3. WILL CONT TO MONITOR
[2022-06-20 08:00] VITALS: BP 134/74
[2022-06-20] MEDS: VALPROIC ACID 250 MG/5 ML UDC GT SCH (08:40)
[2022-06-20] MEDS: MULTIVITAMINS,THERAGRAN 1 UDTAB TABLET GT SCH (08:40)
[2022-06-20] MEDS: SIMETHICONE 80 MG TAB.CHEW GT SCH (08:40)
[2022-06-20] MEDS: CHLORHEXIDINE GLUCONATE 15 ML UDC MM SCH (08:40)
[2022-06-20] MEDS: PANTOPRAZOLE 40 MG/PACK PACK GT SCH (08:40)
[2022-06-20] MEDS: MAGNESIUM OXIDE 400 MG TABLET GT SCH (08:41)
[2022-06-20] MEDS: CALCIUM CARBONATE (1250) 500 MG TABLET GT SCH (08:41)
[2022-06-20] MEDS: MIDODRINE HCL (5MG) 5 MG TABLET GT SCH (08:42)
[2022-06-20] MEDS: ENOXAPARIN SODIUM 40 MG/0.4 ML DISP.SYRIN SQ SCH (08:45)
--- NOTE | 2022-06-20 09:30 | NUR ---
RN NOTES DUE MEDS GIVEN
--- NOTE | 2022-06-20 10:42 | NUR ---
RN NOTES COVID TEST COLLECTED.ENT TO LAB
--- NOTE | 2022-06-20 11:01 | NUR ---
LACIE RN AM NOTE PT RECEIVED IN BED WITH CAREGIVER AT BEDSIDE, AWAKE, NON-VERBAL, OPENS EYES. PT ON [place],AIR. CURRENT O2SAT OF 99%; NO S/S OF RESP DISTRESS, NO SOB OR COUGH, NON-LABORED AND EQUAL BREATHING; APPEARS COMFORTABLE OVERALL. PT ATTACHED TO EXTERNAL MONITOR SB WITH HR OF 78. PT NOTED TO HAVE RIGHT SIDE NEPHROSTOMY THAT'S DRAINING CLEAR AND YELLOW URINE. SHABNAM PICC INTACT AND PATENT, FLUSHES EASILY WITH NO RESISTANCE. ON GLUCERNA 1.2 AT 40 ML/HR. HOB UP X 30 DEG.CALL LIGHT WITHIN REACH, SIDE RAILS UP X3. WILL MONITOR Addendum: 06/20/22 at 1243 by FABI HERNANDEZ RN correction: Time input should be 0730
[2022-06-20 12:00] VITALS: BP 140/56
--- NOTE | 2022-06-20 12:51 | NUR ---
RN NOTES PATIENT DISCHARGED TO [facility] PER MD IN STABLE CONDITION. PROVIDED DC INSTRUCTIONS AND MEDICATION LIST. PATIENT TO CONTINUE IV ANTIBIOTIC WITH IV LEAGUE, PT WITH SHABNAM PICC LINE INTACT AND PATENT WITH CDI DRESSING. NO BELONGINGS. RAPID TEST NEGATIVE RESULT SENT TO FACILITY. SISTER REQUESTED TO SKIP PICTURE TO AVOID PT FROM BEING UPSET AND HAVE TANTRUMS. NO BELONGINGS. ALL PAPER SIGNED BY 2 NURSES. REPORT GIVEN TO AMBULANCE CREW AND WILL BE TRANSPORTED TO FACILITY BY AMBULANCE
[2022-06-20 14:17] LABS: BAND % (MANUAL) 8 % (0.0-5.0); LYMPHOCYTES % (MANUAL) 36 % (16-48); MONOCYTES % (MANUAL) 4 % (0-11.0); NEUTROPHILS % (MANUAL) 52 (42-76)
== END 2022-06-20 13:42 | DRG 720 ==
LOC: ER 10:22 → TRANSITION 13:13 → ICU 17:06 → TELE-TD 06-17 18:49 → TELE1 06-18 08:26
PROVIDERS: ADMIT Nurse Practitioner Acute Care
PROC: 02HV33Z Insertion of Infusion Device into Superior Vena Cava, Percutaneous Approach (ICD-10-PCS; principal; 2022-06-15)
PROC: B548ZZA Ultrasonography of Superior Vena Cava, Guidance (ICD-10-PCS; 2022-06-15)
DX: A41.9 Sepsis, unspecified organism (principal); J96.21 Acute and chronic respiratory failure with hypoxia; J69.0 Pneumonitis due to inhalation of food and vomit; R65.21 Severe sepsis with septic shock; G93.41 Metabolic encephalopathy; S72.92XA Unspecified fracture of left femur, initial encounter for closed fracture; E87.1 Hypo-osmolality and hyponatremia; E86.0 Dehydration; Z20.822 Contact with and (suspected) exposure to COVID-19; E78.5 Hyperlipidemia, unspecified; F73 Profound intellectual disabilities; G40.909 Epilepsy, unspecified, not intractable, without status epilepticus; G80.9 Cerebral palsy, unspecified; Z93.1 Gastrostomy status; R13.10 Dysphagia, unspecified; Z87.442 Personal history of urinary calculi; Z79.4 Long term (current) use of insulin; E11.65 Type 2 diabetes mellitus with hyperglycemia; M81.0 Age-related osteoporosis without current pathological fracture; M41.9 Scoliosis, unspecified; Z96.652 Presence of left artificial knee joint; Z79.51 Long term (current) use of inhaled steroids; Z79.84 Long term (current) use of oral hypoglycemic drugs; Z79.83 Long term (current) use of bisphosphonates; N39.0 Urinary tract infection, site not specified; B96.89 Other specified bacterial agents as the cause of diseases classified elsewhere; R79.89 Other specified abnormal findings of blood chemistry; E87.8 Other disorders of electrolyte and fluid balance, not elsewhere classified; I10 Essential (primary) hypertension; E88.09 Other disorders of plasma-protein metabolism, not elsewhere classified; E87.0 Hyperosmolality and hypernatremia; E87.6 Hypokalemia; J44.9 Chronic obstructive pulmonary disease, unspecified; X58.XXXA Exposure to other specified factors, initial encounter; Y92.129 Unspecified place in nursing home as the place of occurrence of the external cause; R00.1 Bradycardia, unspecified; E27.40 Unspecified adrenocortical insufficiency; B96.1 Klebsiella pneumoniae [K. pneumoniae] as the cause of diseases classified elsewhere; Z16.12 Extended spectrum beta lactamase (ESBL) resistance
CPT/HCPCS: 36415; 36600; 38221; 71045-TC; 80048-TC; 80061-TC; 80076-TC; 81001; 82533; 82803-TC; 82962-TC; 83605-TC; 83735-TC; 84100-TC; 84484-TC; 85025-TC; 85730-TC; 87040-TC; 87081-TC; 87086-TC; 87186-TC; 93307-TC; 94003-TC; 94799-TC; C9113; G0378; J1265; J1650; J1720; J1815; J2185; J2370; J2543; J2920; J3490; J7030; J7040; J7042; J7050; J7060; J7070